=== PATIENT | female | born 1955 | race Hispanic/Latino ===

== ENCOUNTER 2023-08-21 10:40 | Emergency (ER) | payer OTHER, SELFPAY ==
[2023-08-21] VITALS (7 sets, daily range): BP systolic 129–152; BP diastolic 67–83; PULSE 86–129; RESP 14–20; TEMP 36.5; O2SAT 97–99; BMI 28.7
--- NOTE | 2023-08-21 10:55 | ED.GENADULT ---
HPI - General Adult General Chief complaint: Abdominal Pain Stated complaint: N/V/D T-1 Time Seen by Provider: 08/21/23 10:54 Source: patient Mode of arrival: Ambulatory History of Present Illness HPI narrative: Patient is a 68-year-old female. Last evening developed fairly sudden onset of nausea and vomiting that then transitioned into diarrhea. No fevers. No chest pain. Does have some generalized abdominal pain. It started approximately 1 hour after eating a hamburger that was prepared at home. Her ate the same hamburger and has no specific symptoms. No recent travel. No recent antibiotics. Has had a decrease in urine output. Has been unable to tolerate any oral intake because of the nausea and vomiting. Has not tried anything for the symptoms prior to arrival. Related Data Previous Rx's Medication Instructions Recorded ondansetron 4 mg disintegrating 4 mg PO Q6H PRN nausea and 08/21/23 tablet vomiting #14 tabs Allergies Allergy/AdvReac Type Severity Reaction Status Date / Time sulfamethoxazole Allergy Verified 08/21/23 10:44 [From Bactrim] trimethoprim [From Bactrim] Allergy Verified 08/21/23 10:44 Review of Systems Constitutional Constitutional: Reports system reviewed and no additional complaints, except as documented Cardiovascular Cardiovascular: Reports system reviewed and no additional complaints, except as documented Respiratory Respiratory: Reports system reviewed and no additional complaints, except as documented Gastrointestinal Gastrointestinal: Reports system reviewed and no additional complaints, except as documented Musculoskeletal Musculoskeletal: Reports system reviewed and no additional complaints, except as documented Integumentary/Breasts Skin/Breast: Reports system reviewed and no additional complaints, except as documented Neurologic Neurologic: Reports system reviewed and no additional complaints, except as documented Hematologic/Lymphatic Hematologic/Lymphatic: Reports system reviewed and no additional complaints, except as documented Patient History Social History Smoking Status: Never smoker Smoking Status: Never smoker alcohol intake frequency: a few times a week Substance Use Type: does not use Exam Initial Vital Signs Initial Vital Signs: Vital Signs Temperature 97.7 F 08/21/23 10:44 Pulse Rate 129 H 08/21/23 10:44 Respiratory Rate 20 08/21/23 10:44 Blood Pressure 152/80 H 08/21/23 10:44 Pulse Oximetry 97 08/21/23 10:44 Oxygen Delivery Method Room Air 08/21/23 10:44 [facility] Head: normal to inspection and normocephalic Resp Effort & Inspection: normal respiratory effort Auscultation: clear to auscultation bilaterally Cardio Rate: tachycardic Rhythm: regular rhythm GI Inspection: normal to inspection and non-distended Palpation: soft and No firm Skin General: no rashes or lesions noted Neuro General: patient alert and patient awake Extrem General: capillary refill normal Course Orders Ordered: ED Orders 08/21/23 11:00 Complete Blood Count AUTO DIFF Stat Comprehensive Metabolic Panel Stat Lipase Stat Ondansetron HCl (Ondansetron 4 Mg Odt) 4 mg PO NOW PRN PRN Reason: Nausea And Vomiting Ondansetron HCl (Ondansetron 4 Mg/2 Ml Inj) 4 mg IV NOW PRN PRN Reason: Nausea And Vomiting Last Admin: 08/21/23 11:01 Dose: 4 mg Documented By: CARMEN Discontinued Medications Sodium Chloride (Normal Saline 0.9%) 1,000 mls @ 1,000 mls/hr IV BOLUS ONE Stop: 08/21/23 11:54 Last Infusion: 08/21/23 12:37 Dose: Infused Documented By: Infusion: 08/21/23 12:12 Dose: 1,000 mls/hr Documented By: Admin: 08/21/23 11:01 Dose: 1,000 mls/hr Documented By: CARMEN Ketorolac Tromethamine (Ketorolac 30 Mg/Ml Vial) 30 mg IV NOW ONE Stop: 08/21/23 11:58 Last Admin: 08/21/23 12:08 Dose: 30 mg Documented By: CARMEN Ondansetron HCl (Ondansetron 4 Mg/2 Ml Inj) 4 mg IV NOW ONE Stop: 08/21/23 11:37 Last Admin: 08/21/23 11:44 Dose: 4 mg Documented By: NEERAJ Vital Signs Vital signs: Vital Signs - 8 hr 08/21/23 10:44 08/21/23 11:07 08/21/23 11:07 Temperature 97.7 F Pulse Rate 129 H 96 H Respiratory Rate 20 Blood Pressure 152/80 H 129/83 Pulse Oximetry 97 99 Oxygen Delivery Method Room Air Room Air 08/21/23 11:30 08/21/23 11:30 08/21/23 12:00 Temperature Pulse Rate 90 Respiratory Rate Blood Pressure 135/76 141/67 H Pulse Oximetry 98 Oxygen Delivery Method Room Air 08/21/23 12:00 08/21/23 12:30 08/21/23 12:30 Temperature Pulse Rate 90 86 Respiratory Rate 16 Blood Pressure 144/77 H Pulse Oximetry 98 99 Oxygen Delivery Method Room Air Room Air 08/21/23 13:00 08/21/23 13:00 08/21/23 13:30 Temperature Pulse Rate 87 Respiratory Rate Blood Pressure 133/72 130/77 Pulse Oximetry 99 Oxygen Delivery Method 08/21/23 13:30 Temperature Pulse Rate 88 Respiratory Rate 14 Blood Pressure Pulse Oximetry 98 Oxygen Delivery Method Room Air Medical Decision Making Lab Data Lab results reviewed: Yes I reviewed the patient's lab results. 08/21/23 11:00 08/21/23 11:00 Labs: Lab Results 08/21/23 Range/Units 11:00 WBC 10.5 (4.5-11.0) X10^3/uL RBC 5.18 (4.0-5.2) X10^6/uL Hgb 14.8 (12.0-16.0) g/dL Hct 44.3 (36-46) % MCV 85.6 (80-100) fL MCH 28.6 (26-34) PG MCHC 33.4 (30-36) % RDW 13.9 (11.6-14.8) % Plt Count 407 H (150-400) X10^3/uL Neut % (Auto) 81.1 H (50-75) % Lymph % (Auto) 13.7 L (25-40) % [place] % (Auto) 4.7 (3-14) % Eos % (Auto) 0.0 L (2-4) % Baso % (Auto) 0.5 (0-2) % Neut # (Auto) 8500 H (0422-5071) /uL Lymph # (Auto) 1400 (6267-9707) /uL [place] # (Auto) 500 (0-900) /uL Eos # (Auto) 0 (0-450) /uL Baso # (Auto) 0 (0-100) /uL Sodium 137 (137-145) mmol/L Potassium 4.4 (3.4-5.1) mmol/L Chloride 105 (98-107) mmol/L Carbon Dioxide 20 L (22-32) mmol/L BUN 28 H (7-17) mg/dL Creatinine 1.32 H (0.52-1.04) mg/dL Estimated GFR 44 L (>60) mL/min BUN/Creatinine Ratio 21.2 (6-22) Glucose 141 H (80-110) mg/dL Calcium 10.1 (8.4-10.2) mg/dL Total Bilirubin 0.7 (0.2-1.3) mg/dL AST 23 (14-36) IU/L ALT 17 (<35) IU/L Alkaline Phosphatase 103 (38-126) U/L Total Protein 7.7 (6.3-8.2) g/dL Albumin 4.3 (3.5-5.0) g/dL Globulin 3.4 (1.7-4.1) g/dL Albumin/Globulin Ratio 1.3 (1.0-2.8) Lipase 96 (23-300) U/L MDM Narrative Medical decision making narrative: Patient states she is feeling somewhat better. She is able to tolerate a small amount of oral intake. Labs are unremarkable. Has a benign abdominal exam. No indication for radiologic studies. No indication for antibiotics. Was sent home with nausea medicine. He was given return precautions. She expressed understanding and agreement. Discharge Plan Departure Patient Disposition: Home Clinical Impression: Nausea, vomiting, and diarrhea Instructions: Diarrhea, Nausea and Vomiting-Adult Activity Restrictions/Additional Instructions: Use the nausea medication as needed. Recommend that you try to increase your fluid intake by drinking small amounts more frequently like we discussed. Return to the emergency department for new or worsening symptoms. Prescriptions: New ondansetron 4 mg tablet,disintegrating 4 mg PO Q6H PRN (Reason: nausea and vomiting) Qty: 14 0RF Referrals: Miscellaneous,Doctor, MD [Primary Care Provider] - Stand Alone Forms: Patient Portal/API
[2023-08-21] MEDS: ONDANSETRON 4 MG/2 ML INJ IV ×2 (11:01→11:44)
[2023-08-21] MEDS: SODIUM CHLORIDE 0.9% 1,000 ML 1000 ML IV (11:01)
[2023-08-21 11:06] LABS: Add Manual Diff / Slide Review NO; Basophils Absolute Auto 0 /uL (0-100); Basophils Percent Auto 0.5 % (0-2); Eosinophils Absolute Auto 0 /uL (0-450); Hematocrit 44.3 % (36-46); Hemoglobin 14.8 g/dL (12.0-16.0); Lymphocytes Absolute Auto 1400 /uL (1100-4500); Lymphocytes Percent Auto 13.7 % (25-40); Mean Corpuscular HGB Conc 33.4 % (30-36); Mean Corpuscular Hemoglobin 28.6 PG (26-34); Mean Corpuscular Volume 85.6 fL (80-100); Monocytes Absolute Auto 500 /uL (0-900); Monocytes Percent Auto 4.7 % (3-14); Neutrophils Absolute Auto 8500 /uL (1500-7000); Neutrophils Percent Auto 81.1 % (50-75); Platelet Count 407 X10^3/uL (150-400); Red Blood Cell Count 5.18 X10^6/uL (4.0-5.2); Red Cell Distribution Width 13.9 % (11.6-14.8); White Blood Cell Count 10.5 X10^3/uL (4.5-11.0)
[2023-08-21 11:23] LABS: Alanine Aminotransferase 17 IU/L (<35); Albumin 4.3 g/dL (3.5-5.0); Albumin Globulin Ratio 1.3 (1.0-2.8); Alkaline Phosphatase 103 U/L (38-126); Aspartate Aminotransferase 23 IU/L (14-36); BUN Creatinine Ratio 21.2 (6-22); Bilirubin Total 0.7 mg/dL (0.2-1.3); Blood Urea Nitrogen 28 mg/dL (7-17); Calcium 10.1 mg/dL (8.4-10.2); Carbon Dioxide 20 mmol/L (22-32); Chloride 105 mmol/L (98-107); Estimated Glomerular Filt Rate 44 mL/min (>60); Globulin 3.4 g/dL (1.7-4.1); Glucose 141 mg/dL (80-110); HEMOLYSIS < 15 (0-50); Lipase 96 U/L (23-300); Potassium 4.4 mmol/L (3.4-5.1); Sodium 137 mmol/L (137-145); Total Protein 7.7 g/dL (6.3-8.2)
[2023-08-21] MEDS: KETOROLAC 30 MG/ML VIAL IV (12:08)
--- NOTE | 2023-08-21 12:38 | PC.NURSE ---
Pt feeling better after pain medication admin (see MAR), states nausea is more controlled. Pt resting in bed with eyes closed.
== END 2023-08-21 13:57 | disposition home or self-care (01) ==
PROVIDERS: Emergency Provider Emergency Medicine
DX: R11.2 Nausea with vomiting, unspecified (principal); R19.7 Diarrhea, unspecified
CPT/HCPCS: 36415; 80053; 83690; 85025; 96361; 96374; 96375; 96376; 99284; J1885; J2405

== ENCOUNTER 2024-04-28 04:12 | Emergency (ER) | payer OTHER, SELFPAY ==
[2024-04-28] VITALS (14 sets, daily range): BP systolic 94–130; BP diastolic 52–74; PULSE 78–114; RESP 16–21; TEMP 37.2; O2SAT 92–98; BMI 30.2
--- NOTE | 2024-04-28 04:25 | ED.ABDPAIN ---
HPI - Abdominal Pain <Joshua Devlin MD - Last Filed: 04/28/24 16:02> General Chief Complaint: Abdominal Pain Stated Complaint: diverticulitus flare up Time Seen by Provider: 04/28/24 04:25 Source: patient Mode of arrival: Ambulatory History of Present Illness HPI narrative: 69-year-old female with history of diverticulitis, has lower abdominal pain that feels similar to previous flares, now symptoms for 3 days and increasing. No black or red stools. No nausea or vomiting. No trauma injury or new activities. She has a has kidney stone history, this feels different, denies also frequency of urination or painful urination. She denies shortness of breath cough fevers chills. She has not taken anything for the pain. Last bowel movement yesterday did not improve or increase the pain. She has not currently taking any antibiotics. She did have recent travel to [place], no known exposure to persons with similar symptoms. Related Data Previous Rx's Medication Instructions Recorded ondansetron 4 mg disintegrating 4 mg PO Q6H PRN nausea and 08/21/23 tablet vomiting #14 tabs cephalexin 500 mg capsule 500 mg PO BID 7 days #14 caps 04/28/24 Allergies Allergy/AdvReac Type Severity Reaction Status Date / Time sulfamethoxazole Allergy Verified 08/21/23 10:44 [From Bactrim] trimethoprim [From Bactrim] Allergy Verified 08/21/23 10:44 Review of Systems <Joshua Devlin MD - Last Filed: 04/28/24 16:02> Review of Systems Narrative: see HPI Patient History <Joshua Devlin MD - Last Filed: 04/28/24 16:02> Social History Smoking Status: Never smoker Smoking Status: Never smoker alcohol intake frequency: a few times a week Substance Use Type: marijuana Exam <Joshua Devlin MD - Last Filed: 04/28/24 16:02> Narrative Exam Narrative: GENERAL: Well-developed patient, in mild distress. HEAD: Atraumatic. Normocephalic. EYES: Pupils equal round and reactive. Extraocular motions intact. No scleral icterus. No injection or drainage. ENT: Nose without bleeding, purulent drainage. Throat without erythema, tonsillar hypertrophy or exudate. Airway patent. NECK: Trachea midline. Non tender CARDIOVASCULAR: Regular rate and rhythm without murmurs, gallops, or rubs. RESPIRATORY: Clear to auscultation. Breath sounds equal bilaterally. No wheezes, rales, or rhonchi. GASTROINTESTINAL: Left lower quadrant and right lower quadrant tenderness, no distention, no guarding or rebound tenderness. EXTREMITIES: No edema or joint tenderness. BACK: Nontender without deformity or crepitance. No flank tenderness. NEURO: AOx3. Nonfocal gross motor exam SKIN: No rash or erythema of visible areas Initial Vital Signs Initial Vital Signs: Vital Signs Temperature 99 F 04/28/24 04:19 Pulse Rate 104 H 04/28/24 04:19 Respiratory Rate 18 04/28/24 04:19 Blood Pressure 113/62 04/28/24 04:19 Pulse Oximetry 98 04/28/24 04:19 Oxygen Delivery Method Room Air 04/28/24 04:19 <Charli Butt DO - Last Filed: 04/28/24 12:13> Initial Vital Signs Initial Vital Signs: Vital Signs Temperature 99 F 04/28/24 04:19 Pulse Rate 104 H 04/28/24 04:19 Respiratory Rate 18 04/28/24 04:19 Blood Pressure 113/62 04/28/24 04:19 Pulse Oximetry 98 04/28/24 04:19 Oxygen Delivery Method Room Air 04/28/24 04:19 Course <Joshua Devlin MD - Last Filed: 04/28/24 16:02> Orders Ordered: ED Orders 04/28/24 07:18 MR abdomen pelvis wwo con Stat Discontinued Medications Acetaminophen (Acetaminophen 325 Mg Tablet) 650 mg PO NOW ONE Stop: 04/28/24 11:19 Last Admin: 04/28/24 11:38 Dose: 650 mg Documented By: ADINA Diazepam (Diazepam 5 Mg Tablet) 5 mg PO NOW ONE Stop: 04/28/24 07:50 Last Admin: 04/28/24 09:13 Dose: 5 mg Documented By: PHOENIX Ceftriaxone Sodium 1,000 mg/ (Sodium Chloride) 100 mls @ 200 mls/hr IV NOW ONE Stop: 04/28/24 05:20 Last Infusion: 04/28/24 06:34 Dose: Infused Documented By: Admin: 04/28/24 05:37 Dose: 200 mls/hr Documented By: KRISTA Morphine Sulfate (Morphine 4 Mg/Ml Inj) 4 mg IV NOW ONE Stop: 04/28/24 04:26 Last Admin: 04/28/24 04:46 Dose: 4 mg Documented By: KRISTA Ondansetron HCl (Ondansetron 4 Mg/2 Ml Inj) 4 mg IV NOW ONE Stop: 04/28/24 04:26 Last Admin: 04/28/24 04:45 Dose: 4 mg Documented By: KRISTA Vital Signs Vital signs: Vital Signs - 8 hr 04/28/24 12:15 04/28/24 12:16 04/28/24 12:16 Pulse Rate 93 H 81 Respiratory Rate Blood Pressure 122/58 L Pulse Oximetry 96 96 04/28/24 12:22 Pulse Rate Respiratory Rate 16 Blood Pressure Pulse Oximetry <Charli Butt DO - Last Filed: 04/28/24 12:13> Orders Ordered: ED Orders 04/28/24 07:18 MR abdomen pelvis wwo con Stat Discontinued Medications Acetaminophen (Acetaminophen 325 Mg Tablet) 650 mg PO NOW ONE Stop: 04/28/24 11:19 Last Admin: 04/28/24 11:38 Dose: 650 mg Documented By: ADINA Diazepam (Diazepam 5 Mg Tablet) 5 mg PO NOW ONE Stop: 04/28/24 07:50 Last Admin: 04/28/24 09:13 Dose: 5 mg Documented By: PHOENIX Ceftriaxone Sodium 1,000 mg/ (Sodium Chloride) 100 mls @ 200 mls/hr IV NOW ONE Stop: 04/28/24 05:20 Last Infusion: 04/28/24 06:34 Dose: Infused Documented By: Admin: 04/28/24 05:37 Dose: 200 mls/hr Documented By: KRISTA Morphine Sulfate (Morphine 4 Mg/Ml Inj) 4 mg IV NOW ONE Stop: 04/28/24 04:26 Last Admin: 04/28/24 04:46 Dose: 4 mg Documented By: KRISTA Ondansetron HCl (Ondansetron 4 Mg/2 Ml Inj) 4 mg IV NOW ONE Stop: 04/28/24 04:26 Last Admin: 04/28/24 04:45 Dose: 4 mg Documented By: KRISTA Vital Signs Vital signs: Vital Signs - 8 hr 04/28/24 12:15 04/28/24 12:16 04/28/24 12:16 Pulse Rate 93 H 81 Respiratory Rate Blood Pressure 122/58 L Pulse Oximetry 96 96 04/28/24 12:22 Pulse Rate Respiratory Rate 16 Blood Pressure Pulse Oximetry MDM - Abdominal Pain <Joshua Devlin MD - Last Filed: 04/28/24 16:02> Lab Data Attestation: I reviewed the patient's lab results. 04/28/24 04:35 04/28/24 05:10 Labs: Lab Results 04/28/24 04/28/24 04/28/24 Range/Units 04:33 04:35 05:10 WBC 11.3 H (4.5-11.0) X10^3/uL RBC 4.27 (4.0-5.2) X10^6/uL Hgb 12.0 (12.0-16.0) g/dL Hct 36.2 (36-46) % MCV 84.8 (80-100) fL MCH 28.2 (26-34) PG MCHC 33.2 (30-36) % RDW 14.6 (11.6-14.8) % Plt Count 281 (150-400) X10^3/uL Neut % (Auto) 86.6 H (50-75) % Lymph % (Auto) 5.7 L (25-40) % [place] % (Auto) 7.4 (3-14) % Eos % (Auto) 0.1 L (2-4) % Baso % (Auto) 0.2 (0-2) % Neut # (Auto) 9800 H (0146-4704) /uL Lymph # (Auto) 600 L (6355-7460) /uL [place] # (Auto) 800 (0-900) /uL Eos # (Auto) 0 (0-450) /uL Baso # (Auto) 0 (0-100) /uL Sodium 136 L (137-145) mmol/L Potassium 4.0 (3.4-5.1) mmol/L Chloride 105 (98-107) mmol/L Carbon Dioxide 26 (22-32) mmol/L BUN 20 H (7-17) mg/dL Creatinine 0.77 (0.52-1.04) mg/dL Estimated GFR > 60 (>60) mL/min BUN/Creatinine Ratio 26.0 H (6-22) Glucose 126 H (80-110) mg/dL Calcium 8.8 (8.4-10.2) mg/dL Total Bilirubin 0.8 (0.2-1.3) mg/dL AST 22 (14-36) IU/L ALT 13 (<35) IU/L Alkaline Phosphatase 84 (38-126) U/L Total Protein 6.8 (6.3-8.2) g/dL Albumin 3.9 (3.5-5.0) g/dL Globulin 2.9 (1.7-4.1) g/dL Albumin/Globulin Ratio 1.3 (1.0-2.8) Lipase 65 (23-300) U/L Urine RBC 10-30/hpf H (0-5/HPF) Urine WBC >100/hpf H (0-5/HPF) Ur Squamous Epith Cells 0-1 /hpf (0-5/HPF) Urine Bacteria Few (2-10) H (None) Ur Culture Indicated? Specimen cultured Vol Urine Centrifuged Low vol <10ml (spun) A Point of care testing: Urine Dip Bedside Urine Glucose Negative Bedside Urine Bilirubin - Negative Bedside Urine Ketone +/- 5 Urine Specific [place] 1.015 Bedside Urine Occult Blood +++ Bedside Urine pH 6.0 Bedside Urine Protein ++ 100 Bedside Urine Urobilinogen - Negative Bedside Urine Nitrite - Negative Bedside Urine Leukocytes +++ 500 Esterase MDM Narrative Medical decision making narrative: 69-year-old female with lower abdominal pain, history of diverticulitis, this feels similar. Afebrile, SIRS screen negative. Mild lower abdominal discomfort on palpation, nonrigid. DDx consider flare of diverticulitis, colitis, bowel obstruction, volvulus, hernia, ureteral stone, UTI, magnetic observer etiology, constipation, musculoskeletal, other. IV morphine/Zofran, IV fluid bolus. Keep NPO. Anticipate CT abdomen and pelvis imaging, pending renal function. Urinalysis shows greater than 100,000 white blood cell count, with a few bacteria, urine culture ordered. IV ceftriaxone for possible urinary tract infection. However predominance of pyuria, could be secondary to diverticulitis or some other process, proceed with CT imaging. CT abdomen and pelvis ordered. CT abdomen and pelvis with IV contrast. Impressions: ?No diverticulitis as clinically questioned. There is mild wall thickening and hazy surrounding fat stranding of the urinary bladder which could reflect cystitis. There is prominence of the left ureter throughout its course with periureteral fat stranding and areas of apparent mucosal hyperemia. Mild left pelvic the callus slit T cysts without hydronephrosis. Findings are nonspecific, given the appearance of the urinary bladder, favored to reflect cystitis with ascending ureteritis/early pyelonephritis. Correlation is recommended. Mild central intrahepatic biliary ductal dilatation. Common bile duct measures up to 7 mm, and prominence of the main pancreatic duct 4 mm. Question mild fullness in the region of the ampulla/pancreatic head best seen on the coronal views. An underlying mild obstructive lesion is not entirely excluded. Correlate with biochemical markers for biliary stasis and consider GI consultation discussed a steps, which might include direct visualization with endoscopy/ERCP versus MRI/MRCP with and without contrast. 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 Gynecologic consultation is recommended to discussed next management steps.? See teleradiology report Patient was treated with IV ceftriaxone earlier for suspected urinary tract infection based on urinalysis findings. Urine culture pending. 719, CT teleradiology report findings discussed with patient, she is willing to have MR studies of her abdomen and pelvis, without and with contrast, studies ordered. Studies should be able to be done later today. Signed out to oncoming ED shift physician Dr. Filomena butt: Received turned over. Review patient's history and physical exam and workup up to this point. Patient has urinalysis that could be consistent with a urinary tract infection. She also has findings of a cystitis on the CT scan. She also reports an increased frequency in urination. She would receive antibiotics by the night provider. Plan will be to discharge home with a prescription for oral antibiotics. The MRI did show dilation of the ducts in the biliary/pancreatic region however no overt obstruction. Her LFTs are unremarkable. She does not have pain in this area. I discuss this with her and advised that she contact her primary doctor to discuss further evaluation if needed. We also discussed the findings of the mass in the pelvis that appears to be from the uterus. No emergent condition found. Advised that she talk with her magnetic observer doctor about follow-up and repeat imaging in the future. She was given return precautions. She expressed understanding and agreement with plan. <Charli Butt, DO - Last Filed: 04/28/24 12:13> Lab Data Labs: Lab Results 04/28/24 04/28/24 04/28/24 Range/Units 04:33 04:35 05:10 WBC 11.3 H (4.5-11.0) X10^3/uL RBC 4.27 (4.0-5.2) X10^6/uL Hgb 12.0 (12.0-16.0) g/dL Hct 36.2 (36-46) % MCV 84.8 (80-100) fL MCH 28.2 (26-34) PG MCHC 33.2 (30-36) % RDW 14.6 (11.6-14.8) % Plt Count 281 (150-400) X10^3/uL Neut % (Auto) 86.6 H (50-75) % Lymph % (Auto) 5.7 L (25-40) % [place] % (Auto) 7.4 (3-14) % Eos % (Auto) 0.1 L (2-4) % Baso % (Auto) 0.2 (0-2) % Neut # (Auto) 9800 H (8416-0725) /uL Lymph # (Auto) 600 L (8946-5899) /uL [place] # (Auto) 800 (0-900) /uL Eos # (Auto) 0 (0-450) /uL Baso # (Auto) 0 (0-100) /uL Sodium 136 L (137-145) mmol/L Potassium 4.0 (3.4-5.1) mmol/L Chloride 105 (98-107) mmol/L Carbon Dioxide 26 (22-32) mmol/L BUN 20 H (7-17) mg/dL Creatinine 0.77 (0.52-1.04) mg/dL Estimated GFR > 60 (>60) mL/min BUN/Creatinine Ratio 26.0 H (6-22) Glucose 126 H (80-110) mg/dL Calcium 8.8 (8.4-10.2) mg/dL Total Bilirubin 0.8 (0.2-1.3) mg/dL AST 22 (14-36) IU/L ALT 13 (<35) IU/L Alkaline Phosphatase 84 (38-126) U/L Total Protein 6.8 (6.3-8.2) g/dL Albumin 3.9 (3.5-5.0) g/dL Globulin 2.9 (1.7-4.1) g/dL Albumin/Globulin Ratio 1.3 (1.0-2.8) Lipase 65 (23-300) U/L Urine RBC 10-30/hpf H (0-5/HPF) Urine WBC >100/hpf H (0-5/HPF) Ur Squamous Epith Cells 0-1 /hpf (0-5/HPF) Urine Bacteria Few (2-10) H (None) Ur Culture Indicated? Specimen cultured Vol Urine Centrifuged Low vol <10ml (spun) A Point of care testing: Urine Dip Bedside Urine Glucose Negative Bedside Urine Bilirubin - Negative Bedside Urine Ketone +/- 5 Urine Specific [place] 1.015 Bedside Urine Occult Blood +++ Bedside Urine pH 6.0 Bedside Urine Protein ++ 100 Bedside Urine Urobilinogen - Negative Bedside Urine Nitrite - Negative Bedside Urine Leukocytes +++ 500 Esterase Imaging Data MRI abd /pelvis: Radiologist's Impression: PROCEDURE:MR ABDOMEN PELVIS WWO CON COMPARISON:[facility], CT, CT ABDOMEN PELVIS W CON, 04/28/2024, 5:21. INDICATIONS:abd pain, biliary and pelvic abnl findings on CT report Technique: MRI images were obtained using multiple sequences and multiple planes of the abdomen and pelvis with and without contrast. FINDINGS: Image quality: Overall diagnostic however, the abdominal images are missing diffusion sequences due to technical scanner error. Lower chest: No basal effusions. Lungs are not well evaluated on this study. There is nonspecific distal esophageal wall thickening. Liver: No solid mass. Overall contour is within normal limits Gallbladder and biliary system: The gallbladder is distended, without definite stone identified. Mildly dilated CBD at 7-8 mm, no filling defect. No obstructing mass identified Pancreas: No ductal dilation. The parenchyma appears unremarkable, without discrete mass Spleen: Nonenlarged Adrenals: No discrete nodules Kidneys: No solid mass. No hydronephrosis. Again seen is [id number] left renal pelvis and ureter urothelial edematous fat stranding and thickening. Vessels and lymph nodes: No abdominal aortic aneurysm or pathologic lymph nodes by size criteria. The main portal vein is patent. Bowel and peritoneum: No evidence of small bowel obstruction or pathologic ascites. Colonic diverticula are seen. Body wall: Unremarkable Abdominal bones: There are degenerative changes. Bladder: Mild perivesicular fat stranding Reproductive organs: The junctional zone and endometrium are nonthickened. There are small uterine fibroids. Ovaries are not well seen, probably atrophic. As seen on CT, there is a low-density lesion posterior to the uterus (14/74), with low level enhancement and areas of fatty signal. This appears contiguous with the uterus, with a thin stops, 9/7. Rectum: There are colonic diverticula. The rectum is unremarkable. Vessels and lymph nodes: No aneurysmal vessel or pathologic lymphadenopathy identified by size criteria Pelvic wall: Unremarkable Pelvic Bones: Degenerative changes. IMPRESSION:In the abdomen, mildly dilated biliary system without obstructing filling defect or mass identified. Consider ERCP if further evaluation is needed In the pelvis, low-density lesion posterior to the uterus is favored to have a thin stock arising from the posterior uterine body. There are areas of fatty signal. Findings favored represent a degenerating lipoleiomyoma. Consider 3 to six-month follow-up to ensure stability (CT is sufficient). Inflammatory changes of the bladder and left ureter, likely genitourinary infection. Other findings as above. Approved by: Nathaniel Perkins M.D. on 04/28/2024 at 11:54 MDM Narrative Medical decision making narrative: 69-year-old female with lower abdominal pain, history of diverticulitis, this feels similar. Afebrile, sirs screen negative. Mild lower abdominal discomfort on palpation, nonrigid. DX consider flare of diverticulitis, colitis, bowel obstruction, volvulus, hernia, ureteral stone, UTI, magnetic observer etiology, constipation, musculoskeletal, other. IV morphine/Zofran, IV fluid bolus. Keep NPO. Anticipate CT abdomen and pelvis imaging, pending renal function. Urinalysis shows greater than 100,000 white blood cell count, few bacteria, urine culture. IV ceftriaxone for possible urinary tract infection. However predominance of pyuria, could be secondary to diverticulitis or some other process, proceed with CT imaging. CT abdomen and pelvis ordered. CT abdomen and pelvis with IV contrast. Impressions: ?No diverticulitis as clinically questioned. There is mild wall thickening and hazy surrounding fat stranding of the urinary bladder which could reflect cystitis. There is prominence of the left ureter throughout its course with periureteral fat stranding and areas of apparent mucosal hyperemia. Mild left pelvic the callus slit T cysts without hydronephrosis. Findings are nonspecific, given the appearance of the urinary bladder, favored to reflect cystitis with ascending ureteritis/early pyelonephritis. Correlation is recommended. Mild central intrahepatic biliary ductal dilatation. Common bile duct measures up to 7 mm, and prominence of the main pancreatic duct 4 mm. Question mild fullness in the region of the ampulla/pancreatic head best seen on the coronal views. An underlying mild obstructive lesion is not entirely excluded. Correlate with biochemical markers for biliary stasis and consider GI consultation discussed a steps, which might include direct visualization with endoscopy/ERCP versus MRI/MRCP with and without contrast. 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 Gynecologic consultation is recommended to discussed next management steps.? See teleradiology report Patient was treated with IV ceftriaxone earlier for suspected urinary tract infection based on urinalysis findings. Urine culture pending. 719, CT findings discussed with patient, she is willing to have MR studies of her abdomen and pelvis, without and with contrast, studies ordered. Studies should be able to be done later today. Signed out to oncoming ED physician Dr. Filomena butt: Received turned over. Review patient's history and physical exam and workup up to this point. Patient has urinalysis that could be consistent with a urinary tract infection. She also has findings of a cystitis on the CT scan. She also reports an increased frequency in urination. She would receive antibiotics by the night provider. Plan will be to discharge home with a prescription for oral antibiotics. The MRI did show dilation of the ducts in the biliary/pancreatic region however no overt obstruction. Her LFTs are unremarkable. She does not have pain in this area. I discuss this with her and advised that she contact her primary doctor to discuss further evaluation if needed. We also discussed the findings of the mass in the pelvis that appears to be from the uterus. No emergent condition found. Advised that she talk with her magnetic observer doctor about follow-up and repeat imaging in the future. She was given return precautions. She expressed understanding and agreement with plan. Critical Care Time <Joshua Devlin MD - Last Filed: 04/28/24 16:02> Critical Care Time Critical Care Time: Yes Total Critical Care Time: 31 Attestation: The high probability of a clinically significant, sudden or life threatening deterioration of the [gastrointestinal, abdominopelvic, genitourinary, gynecologic] system(s) required my full and direct attention, intervention and personal management. The aggregate critical care time was [31] minutes. This time is in addition to time spent performing reported procedures but includes the following: [x] Data Review and interpretation [x] Patient assessment and monitoring of vital signs [x] Documentation [x] Medication orders and management Discharge Plan Departure Patient Disposition: Home Clinical Impression: Urinary tract infection, Abdominal pain Instructions: DI for Urinary Tract Infection (UTI), DI for Abdominal Pain-Adult Activity Restrictions/Additional Instructions: I recommend that you take the antibiotics as directed. You can take Tylenol for any discomfort. There were some nonemergent findings on the MRI that you do need to contact your primary doctor for a follow-up. Return to the emergency department for new or worsening symptoms. Prescriptions: New cephalexin 500 mg capsule 500 mg PO BID 7 Days Qty: 14 0RF No Action ondansetron 4 mg tablet,disintegrating 4 mg PO Q6H PRN (Reason: nausea and vomiting) Qty: 14 0RF Referrals: Miscellaneous,Doctor, MD [Primary Care Provider] - Stand Alone Forms: Patient Portal/API
[2024-04-28 04:45] LABS: Add Manual Diff / Slide Review NO; Basophils Absolute Auto 0 /uL (0-100); Basophils Percent Auto 0.2 % (0-2); Eosinophils Absolute Auto 0 /uL (0-450); Eosinophils Percent Auto 0.1 % (2-4); Hematocrit 36.2 % (36-46); Lymphocytes Absolute Auto 600 /uL (1100-4500); Lymphocytes Percent Auto 5.7 % (25-40); Mean Corpuscular HGB Conc 33.2 % (30-36); Mean Corpuscular Hemoglobin 28.2 PG (26-34); Mean Corpuscular Volume 84.8 fL (80-100); Monocytes Absolute Auto 800 /uL (0-900); Monocytes Percent Auto 7.4 % (3-14); Neutrophils Absolute Auto 9800 /uL (1500-7000); Neutrophils Percent Auto 86.6 % (50-75); Platelet Count 281 X10^3/uL (150-400); Red Blood Cell Count 4.27 X10^6/uL (4.0-5.2); Red Cell Distribution Width 14.6 % (11.6-14.8); White Blood Cell Count 11.3 X10^3/uL (4.5-11.0)
[2024-04-28] MEDS: ONDANSETRON 4 MG/2 ML INJ IV (04:45)
[2024-04-28] MEDS: MORPHINE 4 MG/ML INJ IV (04:46)
[2024-04-28 05:08] LABS: Bacteria Urine Few (2-10); Culture Indicated Urine Specimen Cultured; RBC Urine 10-30/HPF (0-5/HPF); Squamous Epithelial Cell Urine 0-1 /HPF (0-5/HPF); Urine Volume Low Vol <10mL (spun); WBC Urine >100/HPF (0-5/HPF)
--- NOTE | 2024-04-28 05:17 | DI.CT.S_ITS ---
PROCEDURE: CT ABDOMEN PELVIS W CON INDICATIONS: Abdominal pain TECHNIQUE: After the administration of intravenous contrast, axial sections acquired from the lung bases to the pubic symphysis. Coronal and sagittal reformats were performed. For radiation dose reduction, the following was used: automated exposure control, adjustment of mA and/or kV according to patient size. COMPARISON: None. FINDINGS: Image quality: Diagnostic Lower chest: Basal atelectasis. There is nonspecific distal esophageal wall thickening. Liver: Unremarkable Gallbladder and biliary system: Mildly distended. Biliary tree is borderline dilated CBD at 7 to 8 mm Pancreas: Mildly prominent duct. No discrete mass. Spleen: Nonenlarged Adrenals: No discrete nodules Kidneys: Moderate left urothelial hyperemia and periureteral fat stranding. There is no solid renal mass. There is no obstructing calcified stone. Vessels and lymph nodes: Main portal vein is patent. No abdominal aortic aneurysm or pathologic lymph nodes by size criteria. Bowel and peritoneum: Postsurgical changes at the stomach. No acute small bowel obstruction. No pathologic ascites or drainable abscess. Colonic diverticula are seen. Body wall: Possible postsurgical changes Pelvis: Mild bladder wall thickening. Irregular low-density lesion is seen behind the uterus measuring about 3.3 cm. Bones: There are degenerative changes. No acute or suspicious finding. IMPRESSION: Possible cystitis and ascending genitourinary infection on the left. No obstructing calcified stone identified. Mildly distended gallbladder and biliary tree. Mildly prominent pancreatic duct. Consider LFT, ultrasound, and possible MRCP correlation. 3.3 cm irregular low-density lesion behind the uterus. This could be further evaluated with ultrasound or MRI. Nonspecific distal esophageal wall thickening. Postsurgical stomach changes. Other findings as above. No significant discrepancy from prelim report. Dictated by: Nathaniel Perkins M.D. on 04/28/2024 at 8:09 Approved by: Nathaniel Perkins M.D. on 04/28/2024 at 8:16
[2024-04-28] MEDS: cefTRIAXone 1,000 MG in SODIUM CHLORIDE 0.9% 100 ML 200 MG IV (05:37)
[2024-04-28 05:40] LABS: Alanine Aminotransferase 13 IU/L (<35); Albumin 3.9 g/dL (3.5-5.0); Albumin Globulin Ratio 1.3 (1.0-2.8); Alkaline Phosphatase 84 U/L (38-126); Aspartate Aminotransferase 22 IU/L (14-36); Bilirubin Total 0.8 mg/dL (0.2-1.3); Blood Urea Nitrogen 20 mg/dL (7-17); Calcium 8.8 mg/dL (8.4-10.2); Carbon Dioxide 26 mmol/L (22-32); Chloride 105 mmol/L (98-107); Estimated Glomerular Filt Rate > 60 mL/min (>60); Globulin 2.9 g/dL (1.7-4.1); Glucose 126 mg/dL (80-110); HEMOLYSIS < 15 (0-50); Lipase 65 U/L (23-300); Sodium 136 mmol/L (137-145); Total Protein 6.8 g/dL (6.3-8.2)
--- NOTE | 2024-04-28 07:18 | DI.MRI.S_ITS ---
PROCEDURE: MR ABDOMEN PELVIS WWO CON COMPARISON: [facility], CT, CT ABDOMEN PELVIS W CON, 04/28/2024, 5:21. INDICATIONS: abd pain, biliary and pelvic abnl findings on CT report Technique: MRI images were obtained using multiple sequences and multiple planes of the abdomen and pelvis with and without contrast. FINDINGS: Image quality: Overall diagnostic however, the abdominal images are missing diffusion sequences due to technical scanner error. Lower chest: No basal effusions. Lungs are not well evaluated on this study. There is nonspecific distal esophageal wall thickening. Liver: No solid mass. Overall contour is within normal limits Gallbladder and biliary system: The gallbladder is distended, without definite stone identified. Mildly dilated CBD at 7-8 mm, no filling defect. No obstructing mass identified Pancreas: No ductal dilation. The parenchyma appears unremarkable, without discrete mass Spleen: Nonenlarged Adrenals: No discrete nodules Kidneys: No solid mass. No hydronephrosis. Again seen is [id number]-[id number] left renal pelvis and ureter urothelial edematous fat stranding and thickening. Vessels and lymph nodes: No abdominal aortic aneurysm or pathologic lymph nodes by size criteria. The main portal vein is patent. Bowel and peritoneum: No evidence of small bowel obstruction or pathologic ascites. Colonic diverticula are seen. Body wall: Unremarkable Abdominal bones: There are degenerative changes. Bladder: Mild perivesicular fat stranding Reproductive organs: The junctional zone and endometrium are nonthickened. There are small uterine fibroids. Ovaries are not well seen, probably atrophic. As seen on CT, there is a low-density lesion posterior to the uterus (14/74), with low level enhancement and areas of fatty signal. This appears contiguous with the uterus, with a thin stops, 9/7. Rectum: There are colonic diverticula. The rectum is unremarkable. Vessels and lymph nodes: No aneurysmal vessel or pathologic lymphadenopathy identified by size criteria Pelvic wall: Unremarkable Pelvic Bones: Degenerative changes. IMPRESSION: In the abdomen, mildly dilated biliary system without obstructing filling defect or mass identified. Consider ERCP if further evaluation is needed In the pelvis, low-density lesion posterior to the uterus is favored to have a thin stock arising from the posterior uterine body. There are areas of fatty signal. Findings favored represent a degenerating lipoleiomyoma. Consider 3 to six-month follow-up to ensure stability (CT is sufficient). Inflammatory changes of the bladder and left ureter, likely genitourinary infection. Other findings as above. Approved by: Nathaniel Perkins M.D. on 04/28/2024 at 11:54
[2024-04-28] MEDS: diazePAM 5 MG TABLET PO (09:13)
[2024-04-28] MEDS: ACETAMINOPHEN 325 MG TABLET 650 MG PO (11:38)
== END 2024-04-28 12:24 | disposition home or self-care (01) ==
PROVIDERS: Emergency Medicine; Emergency Provider Emergency Medicine
DX: N39.0 Urinary tract infection, site not specified (principal); R10.30 Lower abdominal pain, unspecified
CPT/HCPCS: 36415; 72197; 74177; 74183; 80053; 81003; 81015; 83690; 85025; 87077; 87086; 87186; 96365; 96375; 99284; A9579; J0696; J2270; J2405; Q9967